=== PATIENT | male | born 1980 | race Caucasian/White ===

== ENCOUNTER 2018-11-17 18:18 | Emergency (ER) | payer MEDICAID ==
[~2018-11-17] VITALS: Ht 165.1 cm; Wt 86.0 kg
[2018-11-17 18:28] VITALS: BP 156/90; PULSE 85; RESP 20; Ht 165.1 cm; Wt 86.0 kg
--- NOTE | 2018-11-17 22:58 | ERD ---
ER Documentation Chief Complaint Chief Complaint PT STATES THAT HE DRANK TYLENOL AND THAT HE FEELS THAT THEY ARE STUCK HPI This is a 38-year-old male who presents to the ED with complaints of a foreign body stuck in his throat. Patient states he has been having fevers and coughing for the past 3 days. He took a Tylenol at 11 PM last night and felt that the pill was still stuck in his throat. He was still had a fever this morning and therefore took another half of a Tylenol at 4:30 PM today and still feels like the pills are stuck in his throat. He has tried coughing up medications without any relief. He denies any difficulty breathing, difficulty swallowing, and is tolerating drinking fluids. No nausea, vomiting, chest pain, shortness of breath or any other symptoms. ROS All systems reviewed and are negative except as per history of present illness. Allergies Allergies: Coded Allergies: No Known Allergy (Unverified , 11/17/18) PMhx/Soc Medical and Surgical Hx: pt denies Medical Hx, pt denies Surgical Hx History of Surgery: No Anesthesia Reaction: No Hx Neurological Disorder: No Hx Respiratory Disorders: No Hx Cardiac Disorders: No Hx Psychiatric Problems: No Hx Miscellaneous Medical Probl: No Hx Alcohol Use: No Hx Substance Use: No Hx Tobacco Use: No Smoking Status: Never smoker Physical Exam Vitals Vital Signs Date Temp Pulse Resp B/P (MAP) Pulse Ox O2 O2 Flow FiO2 Time Delivery Rate 11/17/18 100.2 85 20 156/90 98 18:28 (112) Physical Exam Const: No acute distress Head: Atraumatic Eyes: Normal Conjunctiva ENT: Normal External Ears, Nose and Mouth. Neck: Full range of motion. No meningismus. Skin: No petechiae or rashes Ext: No cyanosis, or edema Neur: Awake and alert Psych: Normal Mood and Affect Procedures/[facility] EMERGENT LABS AND DIAGNOSTIC STUDIES: Radiology Results as interpreted by Radiology: PROCEDURE: One view chest radiograph. CLINICAL INDICATION: Foreign body TECHNIQUE: An AP view of the chest was obtained. COMPARISON: None. FINDINGS: Mediastinum: Unremarkable. Heart size: Normal. Pulmonary vasculature: No visible engorgement. Lungs: Clear. Costophrenic sulci: Clear. Bony structures: Grossly unremarkable for age. IMPRESSION: 1. Unremarkable single view chest. PROCEDURE: Soft tissue of the neck CLINICAL INDICATION: Foreign body sensation TECHNIQUE: AP and lateral soft tissue views of the neck were performed. COMPARISON: None FINDINGS: There is no evidence of parapharyngeal mass. There is no visible tonsillar enlargement. The epiglottis is normal in thickness. No radiopaque foreign materials are evident. The bony structures are unremarkable. IMPRESSION: 1.Unremarkable soft tissues of the neck. Nursing Notes Reviewed. Previous Medical Records requested via the Electronic Health Record. EMERGENCY DEPARTMENT COURSE / MEDICAL DECISION MAKIN-year-old male presents to the ED with complaints of a foreign body sensation status post taking Tylenol pills at home. Vital signs without any sign of hypoxia or respiratory distress. Patient has no signs or symptoms suggesting airway compromise, esophageal obstruction or intestinal obstruction. XR of the neck and chest was unremarkable. Patient was given a copy of his results. Symptoms are likely secondary to esophagitis. Recommended taking Tylenol with water to reduce risk of the tablet getting stuck in the esophagus and to avoid standing or sitting upright for at least 30 minutes afterwards. He was given referrals to community clinics to follow-up with in the next few days. Return to the ED for any new or worsening symptoms. Prior to discharge, patients vital signs have been reviewed PRESCRIPTIONS: None SPECIALIST FOLLOW UP RECOMMENDED: None Blood Pressure Assessment: Patient's blood pressure was elevated (>120/80) but appears stable without evidence of hypertension emergency or urgency. The patient was counseled about the risks of hypertension and urged to pursue outpatient monitoring and therapy within a week with their primary care physician. Departure Diagnosis: Primary Impression: Esophagitis Condition: Stable Patient Instructions: Esophagitis DARRYL MARCUS PA-C Nov 17, 2018 22:58
== END 2018-11-18 00:51 | disposition left against medical advice (07) ==
LOC: FTE 18:18
DX: K20.9 Esophagitis, unspecified (principal)
CPT/HCPCS: 70360; 71045; Z7502